=== PATIENT | male | born 1965 | race Caucasian/White ===

== ENCOUNTER 2019-10-22 08:05 | Emergency (ER) | payer BC ==
[2019-10-22] MEDS ORDERED: Aspirin Chewable 81 MG TAB ONE (08:10)
[2019-10-22] MEDS ORDERED: Lorazepam 2 MG/ML VIAL ONE (08:28)
[2019-10-22] MEDS ORDERED: Mag-Al Plus 1200 MG/1200 MG/120 MG/30 ML UDCUP ONE (08:28)
[2019-10-22] MEDS ORDERED: Pantoprazole 40 MG VIAL ONE (08:28)
[2019-10-22] MEDS ORDERED: Lidocaine Viscous Sol 2% 15 ml UD Cup ONE (08:28)
[2019-10-22 08:47] LABS: #Basophils 0.1 thou/uL (0.0-0.2); #Lymphocytes 1.1 thou/uL (1.20-3.40); #Monocytes 0.5 thou/uL (0.11-0.59); #Neutrophils 4.2 thou/uL (1.40-6.50); %Basophils 1.2 % (0.0-1.0); %Eosinophils 0.5 % (0.0-10.0); %Lymphocytes 18.8 % (21.0-51.0); %Monocytes 8.9 % (0.0-10.0); %Neutrophils 70.7 % (42.0-75.0); ALT (SGPT) 51 U/L (8-55); AST (SGOT) 43 U/L (5-34); Albumin 4.6 g/dL (3.5-5.0); Alkaline Phosphatase 114 U/L (40-110); Anion Gap 16 mmol/L (10-20); BUN (Urea Nitrogen) 20 mg/dL (8.4-25.7); Bilirubin, Total 0.8 mg/dL (0.2-1.2); CK (CPK) 61 U/L (30-200); Calc. Creatinine Clearance 0 mL/min (70-130); Calcium 9.9 mg/dL (7.8-10.44); Carbon Dioxide 25 mmol/L (22-29); Chloride 102 mmol/L (98-107); Estimated GFR-MDRD 83; Glucose 111 mg/dL (70-105); Hemoglobin 15.2 g/dL (14.0-18.0); Lipase 17 U/L (8-78); Mean Corpuscular HGB CONC 34.7 g/dL (32.0-36.0); Mean Corpuscular Hemoglobin 33.5 pg (27.0-31.0); Mean Corpuscular Volume 96.7 fL (78.0-98.0); Mean Platelet Volume 9.9 fL (7.4-10.4); Platelet Count 191 thou/uL (130-400); Potassium 4.3 mmol/L (3.5-5.1); Protein, Total 7.6 g/dL (6.0-8.3); Red Blood Cell (RBC) Count 4.53 mill/uL (4.70-6.10); Sodium 139 mmol/L (136-145); White Blood Cell (WBC) Count 5.9 thou/uL (4.8-10.8)
[2019-10-22 10:38] LABS: Troponin I Less than 0.010 ng/mL (< 0.028)
--- NOTE | 2019-10-22 16:35 | RAD ---
PORTABLE CHEST 10/22/19 An AP portable film at 0845 shows a normal sized heart and clear lungs. No infiltrate or effusion was seen. There is no vascular congestion or edema. The bony structures showed no acute change. IMPRESSION: No acute thoracic findings. POS: HOME
== END 2019-10-22 11:05 | disposition home or self-care (01) ==
LOC: BURERS 08:05
DX: K20.9 Esophagitis, unspecified (principal); F41.9 Anxiety disorder, unspecified; Z79.899 Other long term (current) drug therapy
CPT/HCPCS: 36415; 71045; 80053; 82550; 83690; 84484; 85025; 93005; 96374; 96375; C9113; J2060

== ENCOUNTER 2019-10-24 08:46 | Emergency (ER) | payer BC | END 2019-10-24 09:35 | disposition home or self-care (01) | LOC: BURERS 08:46 | DX: M54.5 Low back pain (principal); T40.4X5A Adverse effect of other synthetic narcotics, initial encounter; T38.0X5A Adverse effect of glucocorticoids and synthetic analogues, initial encounter; D51.9 Vitamin B12 deficiency anemia, unspecified; Z79.891 Long term (current) use of opiate analgesic; Z79.899 Other long term (current) drug therapy | CPT/HCPCS: 99283 ==

== ENCOUNTER 2020-09-23 07:21 | Emergency (ER) | payer BC ==
[2020-09-23 08:16] LABS: #Basophils 0.1 thou/uL (0.0-0.2); #Lymphocytes 1.2 thou/uL (1.20-3.40); #Monocytes 0.5 thou/uL (0.11-0.59); #Neutrophils 2.6 thou/uL (1.40-6.50); %Eosinophils 0.9 % (0.0-10.0); %Lymphocytes 26.2 % (21.0-51.0); %Neutrophils 58.8 % (42.0-75.0); Hemoglobin 15.1 g/dL (14.0-18.0); Mean Corpuscular HGB CONC 34.3 g/dL (32.0-36.0); Mean Corpuscular Hemoglobin 33.8 pg (27.0-31.0); Mean Corpuscular Volume 98.5 fL (78.0-98.0); Platelet Count 184 thou/uL (130-400); RBC Distribution Width 11.2 % (11.5-14.5); Red Blood Cell (RBC) Count 4.47 mill/uL (4.70-6.10); White Blood Cell (WBC) Count 4.5 thou/uL (4.8-10.8)
[2020-09-23 08:35] LABS: ALT (SGPT) 21 U/L (8-55); AST (SGOT) 19 U/L (5-34); Albumin 4.1 g/dL (3.5-5.0); Alkaline Phosphatase 81 U/L (40-110); Anion Gap 12 mmol/L (10-20); BUN (Urea Nitrogen) 22 mg/dL (8.4-25.7); Calc. Creatinine Clearance 0 mL/min (70-130); Calcium 9.1 mg/dL (7.8-10.44); Carbon Dioxide 28 mmol/L (22-29); Chloride 103 mmol/L (98-107); Globulin 2.8 g/dL (2.4-3.5); Glucose 104 mg/dL (70-105); Lipase 13 U/L (8-78); Potassium 4.3 mmol/L (3.5-5.1); Protein, Total 6.9 g/dL (6.0-8.3); Sodium 139 mmol/L (136-145)
--- NOTE | 2020-09-23 16:21 | CT ---
CT ABDOMEN AND PELVIS WITHOUT CONTRAST: 09/23/[address] was done and shows the lung bases to be clear. The liver, spleen, pancreas, gallblad ovi, adrenal glands, kidneys and abdominal aorta appear normal within the limitations of a noncontras t study. There is no distention of bowel to suggest obstruction. There is no bowel wall thickening or other inflammatory findings around bowel. The appendix appears normal. CT of the pelvis shows no pel betito masses, fluid collections, or inflammatory changes. A few scattered diverticula are noted without any finding of diverticulitis. IMPRESSION: No acute abdominal or pelvic findings. Preliminary report called to Tish in ER at 0842 on 09/23/20.
== END 2020-09-23 09:29 | disposition home or self-care (01) ==
LOC: BURERS 07:21
DX: F41.9 Anxiety disorder, unspecified (principal); D64.9 Anemia, unspecified; K21.9 Gastro-esophageal reflux disease without esophagitis; F17.210 Nicotine dependence, cigarettes, uncomplicated
CPT/HCPCS: 36415; 74176; 80053; 83690; 85025

== ENCOUNTER 2022-04-26 06:32 | Emergency (ER) | payer BC ==
[2022-04-26 07:50] LABS: #Basophils 0.1 thou/uL (0.0-0.2); #Eosinphils 0.1 thou/uL (0.0-0.7); #Lymphocytes 1.8 thou/uL (1.20-3.40); #Monocytes 0.6 thou/uL (0.11-0.59); %Basophils 1.7 % (0.0-1.0); %Lymphocytes 26.9 % (21.0-51.0); %Neutrophils 60.3 % (42.0-75.0); Hemoglobin 16.6 g/dL (14.0-18.0); Mean Corpuscular HGB CONC 35.2 g/dL (32.0-36.0); Mean Corpuscular Hemoglobin 34.2 pg (27.0-31.0); Platelet Count 203 thou/uL (130-400); RBC Distribution Width 11.2 % (11.5-14.5); Red Blood Cell (RBC) Count 4.87 mill/uL (4.70-6.10); White Blood Cell (WBC) Count 6.6 thou/uL (4.8-10.8)
[2022-04-26 08:04] LABS: ALT (SGPT) 14 U/L (8-55); AST (SGOT) 22 U/L (5-34); Albumin 4.4 g/dL (3.5-5.0); Alkaline Phosphatase 99 U/L (40-110); Anion Gap 17 mmol/L (10-20); BUN (Urea Nitrogen) 14 mg/dL (8.4-25.7); Calc. Creatinine Clearance 0 mL/min (70-130); Calcium 9.4 mg/dL (7.8-10.44); Carbon Dioxide 25 mmol/L (22-29); Chloride 102 mmol/L (98-107); Globulin 3.5 g/dL (2.4-3.5); Glucose 100 mg/dL (70-105); Potassium 4.4 mmol/L (3.5-5.1); Protein, Total 7.9 g/dL (6.0-8.3); Sodium 140 mmol/L (136-145)
[2022-04-26] MEDS ORDERED: Aspirin 325 MG TAB ONE (08:19)
[2022-04-26 08:22] LABS: Platelet Morphology Comment Appears Adequate; RBC Morphology Normal
[2022-04-26] MEDS ORDERED: Meclizine HCl 25 MG TAB ONE (08:24)
[2022-04-26 08:29] LABS: Bilirubin Negative (Negative); Blood, Urine Negative (Negative); Clarity Clear (Clear); Glucose, Urine (Dipstick) Negative (Negative); Ketone, Urine Negative (Negative); Leukocyte Negative (Negative); Nitrite Negative (Negative); Protein, Urine (Dipstick) Negative (Neg-Trace); Urobilinogen 0.2 mg/dL (Less than 2); pH, Urine 5.5 (5.0-9.0)
== END 2022-04-26 09:40 | disposition home or self-care (01) ==
LOC: BURERS 06:32
DX: R42 Dizziness and giddiness (principal)
CPT/HCPCS: 70450; 71045; 80053; 81003; 83880; 84484; 85025; 93005; 96360